=== PATIENT | male | born 1995 | race Caucasian/White ===

== ENCOUNTER 2017-08-19 00:46 | Emergency (ER) | payer SELFPAY ==
--- NOTE | 2017-08-19 01:20 | C.PDOC ---
History Of Present Illness 22 year old male, whose PMHx includes seizures, presents to the ED for evaluation after having an absence seizure earlier tonight. Patient states he lost his balance during the episode and fell forward, injuring his right hand. Patient now complains of pain and swelling to his right hand. He denies fever, chills, tongue injury, urinary/bowel incontinence. Chief Complaint (Nursing): Seizure History Per: Patient History/Exam Limitations: no limitations Recent Seizure Activity Began: Just Before Arrival Number Of Seizures: One Length Of Seizures (Duration): Unknown Additional History Per: Patient Past Medical History Reviewed: Historical Data, Nursing Documentation, Vital Signs Vital Signs: Last Vital Signs Temp 98.8 F 08/19/17 01:04 Pulse 82 08/19/17 01:04 Resp 20 08/19/17 01:04 BP 137/81 08/19/17 01:04 Pulse Ox 98 08/19/17 01:51 - Medical History PMH: Seizures Surgical History: No Surg Hx Family History: States: Unknown Family Hx - Social History Hx Tobacco Use: No Hx Alcohol Use: No Hx Substance Use: Yes - Immunization History Hx Influenza Vaccination: Yes Hx Pneumococcal Vaccination: No Review Of Systems Constitutional: Negative for: Fever, Chills Genitourinary: Negative for: Incontinence Musculoskeletal: Positive for: Hand Pain (right) Neurological: Positive for: Seizures Physical Exam - Physical Exam Appears: Non-toxic, No Acute Distress Skin: Warm, Dry, Ecchymosis (to thenar aspect of right hand ) Head: Atraumatic, Normacephalic Eye(s): bilateral: Normal Inspection Oral Mucosa: Moist Neck: Supple Chest: Symmetrical, No Deformity, No Tenderness Cardiovascular: Rhythm Regular, No Murmur Respiratory: Normal Breath Sounds, No Rales, No Rhonchi, No Wheezing Extremity: Normal ROM, Tenderness (to thenar aspect of right hand on palpation ) , Capillary Refill (less than 2 seconds ), No Deformity Pulses: Right Radial: Normal Neurological/Psych: Oriented x3, Normal Speech, Normal Cognition, Normal Sensation Gait: Steady ED Course And Treatment O2 Sat by Pulse Oximetry: 98 (on RA ) Pulse Ox Interpretation: Normal - Other Rad Right hand X-Ray: Interpreted by Me, Viewed By Me Interpretation: no fracture Progress Note: Right hand XR ordered and reviewed. Disposition Doctor Will See Patient In The: Hospital Counseled Patient/Family Regarding: Diagnosis - Disposition Referrals: [facility] [Outside] Disposition: HOME/ ROUTINE Disposition Time: 01:53 Condition: STABLE Prescriptions: Ibuprofen [Motrin Tab] 600 mg PO Q6 #14 tab Instructions: Contusion in Adults (GEN), Hematoma (ED) Forms: [facility] (Slovak) - POA Present On Arrival: None - Clinical Impression Clinical Impression: Contusion, Hematoma - Scribe Statement The provider has reviewed the documentation as recorded by the Scribe (Radhika Be) Provider Attestation: All medical record entries made by the Scribe were at my direction and personally dictated by me. I have reviewed the chart and agree that the record accurately reflects my personal performance of the history, physical exam, medical decision making, and the department course for this patient. I have also personally directed, reviewed, and agree with the discharge instructions and disposition.
[2017-08-19 02:08] VITALS: BP 149/71; PULSE 70; RESP 19; TEMP 98.3; O2SAT 97
--- NOTE | 2017-08-19 09:46 | RAD ---
PROCEDURE: Right Hand Radiographs HISTORY: injury/ pain COMPARISON: None. FINDINGS: BONES: Normal. No fracture. JOINTS: Normal. No osteoarthritic changes. SOFT TISSUES: Normal. OTHER FINDINGS: None. IMPRESSION: Normal right hand radiographs.
== END 2017-08-19 02:18 | disposition home or self-care (01) ==
LOC: C.ER 00:46
DX: S60.221A Contusion of right hand, initial encounter (principal); W19.XXXA Unspecified fall, initial encounter; R56.9 Unspecified convulsions

== ENCOUNTER 2018-02-12 13:11 | Emergency (ER) | payer MEDICAID ==
[2018-02-12 13:15] VITALS: RESP 18
[2018-02-12] MEDS ORDERED: Bacitracin 500 Units/gm Oint Foilpak UD TOP ONE (13:47)
[2018-02-12] MEDS ORDERED: Lidocaine 1% Inj (20ml) INFIL ONE (13:47)
--- NOTE | 2018-02-12 13:50 | C.PDOC ---
History Of Present Illness 22 y/o male presents with laceration to base of right index finger. pt sts he was washing a knife; sponge was in right hand and he swiped the knife with left hand onto sponge and cut his finger. denies any numbness, tingling or weakness to fingers, pt is right hand dominant. Time Seen by Provider: 02/12/18 13:28 Chief Complaint (Nursing): Finger,Hand,&Wrist History Per: Patient History/Exam Limitations: no limitations Onset/Duration Of Symptoms: Hrs (1) Current Symptoms Are (Timing): Still Present Quality: Sharp Past Medical History Reviewed: Historical Data, Nursing Documentation, Vital Signs Vital Signs: Last Vital Signs Temp 97.8 F 02/12/18 14:56 Pulse 60 02/12/18 14:56 Resp 18 02/12/18 14:56 BP 106/65 02/12/18 14:56 Pulse Ox 99 02/12/18 20:33 - Medical History PMH: Seizures Family History: States: Unknown Family Hx - Social History Hx Tobacco Use: No Hx Alcohol Use: No Hx Substance Use: Yes (marijuana) - Immunization History Hx Tetanus Toxoid Vaccination: Yes (oct 2017) Hx Influenza Vaccination: Yes Hx Pneumococcal Vaccination: No Review Of Systems Skin: Positive for: Other (laceration right index finger) Neurological: Negative for: Weakness, Numbness Physical Exam - Physical Exam Appears: Non-toxic, No Acute Distress Skin: Warm, Dry, Other (1.5 cm shallow laceration at base of right index finger , palmar surface, no active bleeding. ) Extremity: Normal ROM (able to flex and extend right index finger with no difficulty. ) Pulses: Right Radial: Normal ED Course And Treatment O2 Sat by Pulse Oximetry: 99 Laceration - Laceration Repair right index finger Wound Length (In cm): 1.5 Description Of Wound: Linear, Clean Wound Cleansed With: Betadine, Sterile Saline Anesthesia: Lidocaine 1% Wound Examination: Irrigated With Saline, No FB With Wound Exploration, No Tendon Injury With Wound Exploration Wound Closure: Suture (5-0 ethilon) Suture Technique And Material Used: Interrupted (#5 sutures) Wound Complexity: Simple Medical Decision Making Medical Decision Making: pt with laceration to right index finger, tdap utd, wound repaired with no complications. Disposition Counseled Patient/Family Regarding: Diagnosis, Need For Followup - Disposition Disposition: HOME/ ROUTINE Disposition Time: 14:43 Condition: GOOD Additional Instructions: Keep wound clean and dry; apply bacitracin to wound twice a day. Suture removal in 7-10 days. Tylenol or Motrin for pain. Return to ER for any sign of infection. Please follow up with your primary care doctor and neurologist for routine care. Instructions: Laceration Repair With Stitches (DC) Forms: [facility] (Hungarian), General Discharge Instructions - Clinical Impression Clinical Impression: Laceration of right index finger
[2018-02-12] MEDS ORDERED: Bacitracin 500 Units/gm Oint Foilpak UD ONE (14:07)
[2018-02-12] MEDS ORDERED: Lidocaine Hydrochloride 5 ML INJ ONE (14:07)
[2018-02-12 14:57] VITALS: BP 106/65; PULSE 60; TEMP 97.8
[2018-02-12 20:33] VITALS: O2SAT 99
== END 2018-02-12 14:56 | disposition home or self-care (01) ==
LOC: C.ER 13:11
DX: S61.210A Laceration without foreign body of right index finger without damage to nail, initial encounter (principal); W26.0XXA Contact with knife, initial encounter; Y93.G1 Activity, food preparation and clean up; Y92.000 Kitchen of unspecified non-institutional (private) residence as the place of occurrence of the external cause

== ENCOUNTER 2018-02-20 17:57 | Emergency (ER) | payer MEDICAID ==
[2018-02-20 18:04] VITALS: BMI 25.9
[2018-02-20 18:05] VITALS: BP 118/67; PULSE 85; RESP 16; TEMP 98.2; O2SAT 96
--- NOTE | 2018-02-20 18:12 | C.PDOC ---
History Of Present Illness 22 year old male presents to the ED for a suture removal. Patient underwent laceration repair in [facility] on 02/12 after he accidentally cut himself with a knife. Patient states wound is well healing and denies fever, chills, pain, swelling or drainage from the area. Time Seen by Provider: 02/20/18 18:00 Chief Complaint (Nursing): Suture/Staple Removal History Per: Patient History/Exam Limitations: no limitations Onset/Duration Of Symptoms: Days Ago Current Symptoms Are (Timing): Better Quality Of Symptoms: denies: Painful, Swollen, Draining Additional History Per: Patient Past Medical History Reviewed: Historical Data, Nursing Documentation, Vital Signs Vital Signs: Last Vital Signs Temp 98.2 F 02/20/18 18:03 Pulse 85 02/20/18 18:03 Resp 16 02/20/18 18:03 BP 118/67 02/20/18 18:03 Pulse Ox 96 02/20/18 22:29 - Medical History PMH: Seizures Surgical History: No Surg Hx Family History: States: Unknown Family Hx - Social History Hx Tobacco Use: No Hx Alcohol Use: No Hx Substance Use: Yes - Immunization History Hx Tetanus Toxoid Vaccination: Yes (oct 2017) Hx Influenza Vaccination: Yes Hx Pneumococcal Vaccination: No Review Of Systems Skin: Positive for: Other (suture removal ) Physical Exam - Physical Exam Appears: Non-toxic, No Acute Distress Skin: Normal Color, Warm, Dry, Other (well-healing wound at base of right index finger, palmar surface. no erythema ) Extremity: Normal ROM, No Tenderness, Capillary Refill (less than 2 seconds ), No Deformity, No Swelling Neurological/Psych: Normal Speech, Normal Cognition ED Course And Treatment O2 Sat by Pulse Oximetry: 96 (on RA) Pulse Ox Interpretation: Normal Medical Decision Making Medical Decision Making: Sutures removed successfully. Dressing applied to area. Patient tolerated well with no complaints. Disposition Counseled Patient/Family Regarding: Diagnosis - Disposition Disposition: HOME/ ROUTINE Disposition Time: 18:11 Condition: STABLE Instructions: Stitches Removal Forms: [facility] (Latvian), General Discharge Instructions - POA Present On Arrival: None - Clinical Impression Clinical Impression: Removal of suture - Scribe Statement The provider has reviewed the documentation as recorded by the Scribe (Radhika Be) Provider Attestation: All medical record entries made by the Scribe were at my direction and personally dictated by me. I have reviewed the chart and agree that the record accurately reflects my personal performance of the history, physical exam, medical decision making, and the department course for this patient. I have also personally directed, reviewed, and agree with the discharge instructions and disposition.
== END 2018-02-20 18:10 | disposition home or self-care (01) ==
LOC: C.ER 17:57
DX: Z48.02 Encounter for removal of sutures (principal)

== ENCOUNTER 2018-02-25 23:18 | Emergency (ER) | payer MEDICAID ==
[2018-02-25 23:21] VITALS: BMI 25.9
[2018-02-26] MEDS ORDERED: Amoxicillin-Clav 875-125 mg Tab PO STA (00:52)
--- NOTE | 2018-02-26 00:57 | C.PDOC ---
History Of Present Illness 22 yo male come in for evaluation of bodyaches, subjective fever for past 3 days associated with sore throat. Otherwise, pt denies high fever, lethargy, severe headache, dizziness vertigo, drooling, dyspnea, cough, CP, SOB, wheezing , abd. pain, V/D, rash, denies any other active complaints. Ambulate to ED for evaluation, not in any apparent distress. Last dose of tylenol 650 mg 1 hr [employer]. HPI: Influenza Time Seen by Provider: 02/25/18 23:32 Chief Complaint: Fever History Per: Patient Exam Limitations: no limitations Have you had recent travel within the past 21 days to any of the following countries: [place], [place], [place] or [place]?: No Onset/Duration Of Symptoms: Days (3) Symptoms include: fever, bodyaches. denies: seizure Sick Contacts (Context): None Hx Influenza Vaccination: No Past Medical History Reviewed: Historical Data, Nursing Documentation, Vital Signs Vital Signs: Last Vital Signs Temp 99.8 F H 02/25/18 23:27 Pulse 115 H 02/25/18 23:27 Resp 16 02/25/18 23:27 BP 145/81 02/25/18 23:27 Pulse Ox 98 02/25/18 23:27 - Medical History PMH: Seizures Surgical History: No Surg Hx Family History: States: Unknown Family Hx - Social History Hx Tobacco Use: No Hx Alcohol Use: No Hx Substance Use: Yes - Immunization History Hx Tetanus Toxoid Vaccination: Yes (oct 2017) Hx Influenza Vaccination: Yes Hx Pneumococcal Vaccination: No Review Of Systems Except As Marked, All Systems Reviewed And Found Negative. Constitutional: Positive for: Fever (subjective), Malaise. Negative for: Chills Eyes: Negative for: Vision Change ENT: Positive for: Nose Congestion, Throat Pain, Throat Swelling. Negative for : Ear Discharge, Nose Discharge Cardiovascular: Negative for: Chest Pain Respiratory: Negative for: Cough, Shortness of Breath, Wheezing Gastrointestinal: Negative for: Nausea, Vomiting, Abdominal Pain, Diarrhea Genitourinary: Negative for: Dysuria Musculoskeletal: Negative for: Neck Pain, Back Pain Skin: Negative for: Rash Neurological: Negative for: Weakness, Numbness, Altered Mental Status, Headache , Dizziness Physical Exam - Physical Exam Appears: Well, Non-toxic, No Acute Distress Skin: Normal Color, Warm, Dry, No Rash Head: Normacephalic Eye(s): bilateral: PERRL Ear(s): Bilateral: Normal Nose: No Flaring, No Discharge Oral Mucosa: Moist, No Drooling, No Trismus Tongue: Normal Appearing Lips: Normal Appearing Throat: Erythema (mod B/L), Exudate (Right), No Drooling, Other (uvula midline, no edema.) Neck: Trachea Midline, Supple Cardiovascular: Rhythm Regular Respiratory: No Decreased Breath Sounds, No Accessory Muscle Use, No Stridor, No Wheezing Gastrointestinal/Abdominal: Soft, No Tenderness, No Distention, No Guarding Extremity: Normal ROM, No Deformity, No Swelling Neurological/Psych: Oriented x3, Normal Speech - ECG O2 Sat by Pulse Oximetry: 98 Pulse Ox Interpretation: Normal - Progress ED Course And Treament: On re-evaluation, pt is afebrile, hemodynamicaly stable. non-toxic. Tolerate Po well in ED. PulsEOx 98% RA ENT: exam c/w Right pharyngitis r/o acute tonsillitis. Uvula midline, no edema, no drooling, no trismus. neck: Supple, (-) meningeal sign. Lungs: CTA B/L, BS equal B/L. Abd: benign. Neurologicaly intact. Pt advised on course of ds. ref. to f/u with PMD, ENT In 2 days for re-eavl. return to ED if any worsening or new changes. Disposition Counseled Patient/Family Regarding: Studies Performed, Diagnosis, Need For Followup, Rx Given - Disposition Referrals: [facility] [Outside] Disposition: HOME/ ROUTINE Disposition Time: 00:53 Condition: STABLE Additional Instructions: Encourage fluids Take medication as prescribed Follow up with PMD in 2 days for re-evaluation. return to ED if any worsening or new changes. Prescriptions: Amoxicillin/Clavulanate [Augmentin 875 MG-125 MG] 1 tab PO BID #14 tab Instructions: Sore Throat in Adults Forms: [facility] (Yakut) - Clinical Impression Clinical Impression: Pharyngitis
[2018-02-26] MEDS ORDERED: Amoxicillin-Clav 875-125 mg Tab PO ONE (00:59)
[2018-02-26 01:23] VITALS: BP 140/80; PULSE 100; RESP 18; TEMP 99; O2SAT 99
== END 2018-02-26 01:23 | disposition home or self-care (01) ==
LOC: C.ER 23:18
DX: J02.9 Acute pharyngitis, unspecified (principal)